=== PATIENT | male | born 1950 | race Caucasian/White ===

== ENCOUNTER 2020-07-27 17:34 | Inpatient (IN) | payer MEDICAID, SELFPAY ==
[2020-07-27 18:31] VITALS: BP 127/59; PULSE 105; RESP 18; TEMP 37.8; O2SAT 95; BMI 30.8
--- NOTE | 2020-07-27 18:38 | PC.NURSE ---
CALL DAUGHTER FOR INFO AND WITH UPDATES: BERNARDO [phone]
--- NOTE | 2020-07-27 20:48 | ED.ABDPAIN ---
HPI - Abdominal Pain General Chief Complaint: Abdominal Pain Stated Complaint: abdominal pain Time Seen by Provider: 07/27/20 20:41 Source: patient and family Mode of arrival: ambulatory Limitations: language barrier History of Present Illness HPI narrative: patient Togolese-speaking only with no significant past medical history had couple of loose bowels yesterday last night he had diffuse abdominal pain unable to eat much and again today had 1 loose bowel followed by severe pain in the right lower quadrant. Also noticed patient had 101 degree F temperature no nausea no vomiting patient did not eat much today because of pain never had similar episode in the past Related Data Allergies Allergy/AdvReac Type Severity Reaction Status Date / Time No Known Allergies Allergy Verified 07/27/20 18:30 Review of Systems Review of Systems REVIEW OF SYSTEMS: Pertinent positives and negatives are stated above in the history. GEN: no chills, fatigue HEENT: no nasal congestion, sore throat, ear pain NEURO: no headache, dizziness, focal weakness PULM: no cough, shortness of breath CV: no chest pain, palpitations, LE edema ABD: per HPI : no dysuria, urgency, frequency SKIN: no rash ROS otherwise negative x 10 Physical Exam Vital Signs: Vital Signs: Vital Signs Temp Pulse Resp BP Pulse Ox 07/27/20 23:48 99.1 F 80 16 124/59 L 98 07/27/20 18:31 100.0 F 105 H 18 127/59 L 95 Body Mass Index 30.8 Const: General: cooperative, well developed, acute distress moderate and well groomed Nutritional Appearance: average body habitus Orientation/consciousness: oriented to person and oriented to time HENMT: Head: Yes normal to inspection Ears: hearing grossly normal bilaterally Eyes: General: appearance normal, both eyes and all related structures Resp: Effort & Inspection: normal respiratory effort Auscultation: clear to auscultation bilaterally Cardio: Palpation: normal PMI Rate: regular rate Rhythm: regular rhythm Heart sounds: S1 normal heart sound present and S2 normal heart sound present GI: Inspection: Yes normal to inspection, No abdominal wall ecchymosis and No visible herniation Palpation (GI): Soft to palpation, Firmness to palpation present (GI), Tenderness to palpation present (GI) in the RLQ, at McBurney's point, obturator sign positive and psoas sign positive; Thomas's sign negative, with no rebound tenderness and Rovsing's sign negative, Guarding due to palpation present (GI), no hernias, no masses and no pulsatile masses Auscultation: normal bowel sounds : General: Yes no CVA tenderness Back/Spine/Pelvis: Back: no CVA tenderness Neuro: General: oriented to person, oriented to place and oriented to time Motor exam (neuro): 5/5 motor strength present throughout Course Course Course Narrative: [address] scan positive for early appendicitis without any complication will call surgeon Dr. Gould for admission and surgery MDM - Abdominal Pain Lab Data Result diagrams: 07/27/20 21:02 07/27/20 21:02 Labs: Lab Results 07/27/20 07/27/20 07/27/20 Range/Units 21:02 21:02 21:02 WBC 12.8 H (4.8-10.8) X10*3/uL RBC 5.07 (4.60-5.80) X10*6/uL Hgb 14.4 (14.0-18.0) g/dl Hct 44.7 (42-52) % MCV 88.2 (80-98) fL MCH 28.4 (27.0-33.0) pg MCHC 32.2 (31.0-36.0) g/dl RDW 14.1 (11.0-16.0) % Plt Count 216 (160-400) X10*3/uL MPV 10.1 (9.4-12.4) fL Immature Gran % (Auto) 0.3 (0.0-0.4) % Neut % (Auto) 76.0 H (45-73) % Lymph % (Auto) 15.6 L (20-40) % [place] % (Auto) 7.6 (2-11) % Eos % (Auto) 0.2 (0-4) % Baso % (Auto) 0.3 (0-2) % Lymph # (Auto) 2.0 (1.2-4.9) X10*3/uL [place] # (Auto) 1.0 (0.1-1.2) X10*3/uL Eos # (Auto) 0.0 (0.0-0.4) X10*3/uL Baso # (Auto) 0.0 (0.0-0.2) X10*3/uL Abs Immat Gran (auto) 0.04 H (0.00-0.03) X10*3/uL Absolute Neuts (auto) 9.7 H (2.0-8.3) X10*3/uL Absolute Nucleated RBC 0.000 (0.0-0.012) X10*3/uL Nucleated RBC % (auto) 0.0 (0.0-0.2) /100WBC PT 13.2 H (10.8-13.0) SEC INR 1.1 (0.9-1.1) Sodium 137 (135-145) mmol/L Potassium 3.7 (3.3-5.1) mmol/l Chloride 102 (96-108) mmol/L Carbon Dioxide 26 (22-29) mmol/L Anion Gap 13 (12-20) BUN 11 (9-16) mg/dL Creatinine 0.95 (0.5-1.4) mg/dL Estim Creat Clear Calc 83.2 Estimated GFR > 60 Random Glucose 132 H (60-115) mg/dL Lactic Acid (0.5-2.0) mmol/L Calcium 8.1 L (8.4-10.2) mg/dL 07/27/20 Range/Units 21:02 WBC (4.8-10.8) X10*3/uL RBC (4.60-5.80) X10*6/uL Hgb (14.0-18.0) g/dl Hct (42-52) % MCV (80-98) fL MCH (27.0-33.0) pg MCHC (31.0-36.0) g/dl RDW (11.0-16.0) % Plt Count (160-400) X10*3/uL MPV (9.4-12.4) fL Immature Gran % (Auto) (0.0-0.4) % Neut % (Auto) (45-73) % Lymph % (Auto) (20-40) % [place] % (Auto) (2-11) % Eos % (Auto) (0-4) % Baso % (Auto) (0-2) % Lymph # (Auto) (1.2-4.9) X10*3/uL [place] # (Auto) (0.1-1.2) X10*3/uL Eos # (Auto) (0.0-0.4) X10*3/uL Baso # (Auto) (0.0-0.2) X10*3/uL Abs Immat Gran (auto) (0.00-0.03) X10*3/uL Absolute Neuts (auto) (2.0-8.3) X10*3/uL Absolute Nucleated RBC (0.0-0.012) X10*3/uL Nucleated RBC % (auto) (0.0-0.2) /100WBC PT (10.8-13.0) SEC INR (0.9-1.1) Sodium (135-145) mmol/L Potassium (3.3-5.1) mmol/l Chloride (96-108) mmol/L Carbon Dioxide (22-29) mmol/L Anion Gap (12-20) BUN (9-16) mg/dL Creatinine (0.5-1.4) mg/dL Estim Creat Clear Calc Estimated GFR Random Glucose (60-115) mg/dL Lactic Acid 1.1 (0.5-2.0) mmol/L Calcium (8.4-10.2) mg/dL Discharge Plan Discharge Clinical Impression: Acute appendicitis Qualifiers: Acute appendicitis type: unspecified acute appendicitis type Qualified Code(s): K35.80 - Unspecified acute appendicitis Patient Disposition: Admitted As Inpatient [facility] Past Medical History Medical History High cholesterol Social History Social History Advance Directives: No Advance Directives Information Provided: Yes
--- NOTE | 2020-07-27 21:07 | CT_ITS ---
EXAMINATION: CT ABDOMEN AND PELVIS WITH CONTRAST CLINICAL INFORMATION: 70-year-old male with right lower quadrant pain. COMPARISON: None TECHNIQUE: Multidetector volumetric images were obtained from the superior aspect of the liver through the pubic symphysis following administration 85 mL of Omnipaque 350 intravenous contrast. Sagittal and coronal reformatted images were obtained on the technologist's workstation. Oral contrast: No This CT examination was performed using dose optimization techniques as appropriate, variously including the following: *Automated exposure control *Adjustment of mA and/or kV according to patient size (this includes techniques or standardized protocols for targeted exams where dose is matched to indication/reason for exam; i.e. extremities or head) *Use of iterative reconstruction technique DLP: 706 mGy-cm FINDINGS: Visualized lung bases demonstrate lingular and dependent atelectasis. Coronary artery calcifications are partially visualized. The liver demonstrates normal size, contour and attenuation. The gallbladder is unremarkable in appearance. The pancreas, spleen and adrenal glands are unremarkable. Symmetrically enhancing kidneys. No hydronephrosis. The stomach is decompressed. Normal caliber loops of small and large bowel. Mild colonic diverticulosis without CT evidence to suggest active diverticulitis. The appendix is mildly dilated measuring up to 9 mm in diameter. There is mesenteric stranding within the right lower abdomen adjacent to the appendix. No abscess or gross free intra-abdominal air appreciated. Normal caliber abdominal aorta which demonstrates only mild atherosclerotic disease. No retroperitoneal lymphadenopathy. Tiny fat-containing umbilical hernia. The bladder is well-distended and normal in appearance. The prostate gland is not enlarged. No gross free pelvic fluid. No inguinal lymphadenopathy. Moderate degenerative changes of the spine. Mild loss of the T12 vertebral body height, possibly a prominent Schmorl's node. CT/CT abdomen pelvis w con IMPRESSION: CT findings most consistent with acute appendicitis. Surgical consultation recommended. This Critical Result was discussed with Dr. Koenig at 10:55 PM on 07/27/2020 and it was ascertained that the content and urgency of the report was understood at the time of direct communication.
[2020-07-27 21:12] LABS: MANUAL DIFF FLAG NO
[2020-07-27 21:13] LABS: Basophils Percent Auto 0.3 % (0-2); Eosinophils Percent Auto 0.2 % (0-4); Hematocrit 44.7 % (42-52); Hemoglobin 14.4 g/dl (14.0-18.0); Imm Gran Abs Auto 0.04 X10*3/uL (0.00-0.03); Imm Gran Pct Auto 0.3 % (0.0-0.4); Lymphocytes Percent Auto 15.6 % (20-40); Mean Corpuscular HGB Conc 32.2 g/dl (31.0-36.0); Mean Corpuscular Hemoglobin 28.4 pg (27.0-33.0); Mean Corpuscular Volume 88.2 fL (80-98); Mean Platelet Volume 10.1 fL (9.4-12.4); Monocytes Percent Auto 7.6 % (2-11); Neutrophils Absolute Auto 9.7 X10*3/uL (2.0-8.3); Platelet Count 216 X10*3/uL (160-400); Red Blood Count 5.07 X10*6/uL (4.60-5.80); Red Cell Distribution Width 14.1 % (11.0-16.0); White Blood Count 12.8 X10*3/uL (4.8-10.8)
[2020-07-27] MEDS: Morphine Sulfate 4 MG/ML CARTRIDGE IVPUSH (21:15)
[2020-07-27] MEDS: ondansetron HCL 4 MG/2 ML VIAL IVPUSH (21:16)
[2020-07-27] MEDS: 0.9 % Sodium Chloride 1,000 ML 999 ML IVCONT (21:16)
[2020-07-27 21:19] LABS: INTERNATIONAL NORM RATIO 1.1 (0.9-1.1); Prothrombin Time 13.2 SEC (10.8-13.0)
[2020-07-27 21:47] LABS: Lactic Acid 1.1 mmol/L (0.5-2.0)
[2020-07-27 21:58] LABS: Anion Gap 13 (12-20); Blood Urea Nitrogen 11 mg/dL (9-16); Calcium 8.1 mg/dL (8.4-10.2); Carbon Dioxide 26 mmol/L (22-29); Chloride 102 mmol/L (96-108); Creatinine Clr Calc Pharmacy 83.2; Estimated Glomerular Filt Rate > 60; Glucose Random 132 mg/dL (60-115); Potassium 3.7 mmol/l (3.3-5.1); Sodium 137 mmol/L (135-145)
[2020-07-27] MEDS: iohexoL 350 MG/ML 100 ML INFUS..BTL IV (22:26)
[2020-07-27] MEDS: Piperacillin Sodium/Tazobactam 3.375 GM in 0.9 % Sodium Chloride 50 ML IV (23:45)
[2020-07-27 23:48] VITALS: BP 124/59; PULSE 80; RESP 16; TEMP 37.3; O2SAT 98
[2020-07-28] VITALS (13 sets, daily range): BP systolic 111–154; BP diastolic 20–69; PULSE 73–115; RESP 16–20; TEMP 36.8–38.2; O2SAT 91–98; BMI 30.8
[2020-07-28 00:59] LABS: SARS COV2 PCR INHOUSE NEGATIVE (Negative)
[2020-07-28] MEDS: Dextrose 5 % and Lactated Ring 1,000 ML 100 ML IVCONT ×2 (04:03→14:45)
[2020-07-28] MEDS: Piperacillin Sodium/Tazobactam 3.375 GM in 0.9 % Sodium Chloride 50 ML IV ×4 (04:24→22:17)
[2020-07-28] MEDS: Morphine Sulfate 4 MG/ML CARTRIDGE IVPUSH (05:35)
--- NOTE | 2020-07-28 05:42 | PC.NURSE ---
Addendum entered by Steffanie Amador RN 07/28/20 05:45: Charted to incorrect patient. Ignore the note below Original Note: Arrived from ED per stretcher and ambulated to bed. Alert and oriented x 4, coherent and conversant. Denied chest pain, headache or dizziness. No longer have nausea, vomiting and abdominal pain. Started IV fluids and urine specimen sent to lab. Slept intermittently during the night. Instructed to inform caregivers in case he had a bowel movement to collect specimen. Needs were attended. Will continue care plan.
--- NOTE | 2020-07-28 05:49 | PC.NURSE ---
Arrived from ED per stretcher. Alert and oriented x 4, primarily [place]ese speaking only. Able to call daughter Temitope over the phone to interpret and provide health care information. Denied chest pain and shortness of breath. He still have abdominal pain and tenderness on RLQ, Morphine 4 mg given PRN with relief. Kept NPO at this time. Will continue care plan.
--- NOTE | 2020-07-28 07:30 | P.HPGS_ITS ---
History of Present Illness History of Present Illness Chief complaint: abdominal pain/ACUTE APPENDICITIS Narrative: Mitzi Monsalve is a 70 year old male who presented to the emergency department last night with a 1 day history of fever and right lower quadrant abdominal pain. He had similar but less severe pain 2 weeks ago. The pain went away on its own but recurred 2 nights ago. Since that time, it has been waxing and waning in severity. Appetite has been poor. In the emergency department, CT scan of the abdomen and pelvis was obtained and was consistent with uncomplicated appendicitis. Review of Systems Constitutional: Constitutional: Reports fever(s) Cardiovascular: Cardiovascular: Denies chest pain, Denies irregular heart rhythm and Denies dyspnea Respiratory: Respiratory: Denies cough and Denies dyspnea Gastrointestinal: Gastrointestinal: Reports as per [facility] Past Medical History Medical History High cholesterol Social History Social History Household Members: Family Housing: House Do you presently have visiting nurse or other home services: No Alcohol intake: unknown Smoking Status: Former smoker Smoked in Last 30 Days: No Patient Interested in Nicotine Replacement: No (quit 3 years ago) Patient Given Instructions on How to Stop Smoking: No (quit 3 years ago) Second Hand Smoke Exposure: No Use of substances other than those prescribed or required for medical reasons: No Have you been hit, kicked, punched, or otherwise hurt by someone within the past year? If so, by whom?: No Do you feel safe in your current relationship?: Yes Is there a partner from a previous relationship who is making you feel unsafe now?: No Are you made to feel afraid or neglected: No Spiritual Healthcare Practices: No Uatsdin Healthcare Practices: Restorationism Cultural Healthcare Practices: No Advance Directives: No Advance Directives Information Provided: Yes Advance Directives on File: Yes Do you have thoughts of harming others: None Do you have a plan to hurt others: No Plan Recently lost weight without trying: No service: Yes Current occupational status: retired Meds Allergies Allergy/AdvReac Type Severity Reaction Status Date / Time No Known Allergies Allergy Verified 07/27/20 18:30 Home Medications Medication Instructions Recorded Confirmed Type atorvastatin 20 mg PO DAILY 07/28/20 07/28/20 History cyanocobalamin (vitamin B-12) 1,000 mcg PO DAILY 07/28/20 07/28/20 History Physical Exam Vital Signs: Vital Signs: Vital Signs Temp Pulse Resp BP Pulse Ox 07/28/20 06:53 18 07/28/20 04:00 98.9 F 95 18 140/66 H 96 07/28/20 03:03 98.9 F 95 18 140/66 H 96 07/27/20 23:48 99.1 F 80 16 124/59 L 98 07/27/20 18:31 100.0 F 105 H 18 127/59 L 95 Body Mass Index 30.8 Const: General: cooperative, healthy appearing and no acute distress HENMT: Head: Yes normal to inspection Neck: Neck: Yes full ROM and Yes trachea midline Resp: Other: Clear to ausc Cardio: Other: regular in rate and rhythm without audible murmurs GI: Other: round, soft, active bowel sounds, focal tenderness low in the rig ht lower quadrant without significant rebound. No palpable masses. Skin: Other: Normal color, warm and dry Results Results Labs: Short CBC 07/27/20 Range/Units 21:02 WBC 12.8 H (4.8-10.8) X10*3/uL Hgb 14.4 (14.0-18.0) g/dl Hct 44.7 (42-52) % Plt Count 216 (160-400) X10*3/uL BMP 07/27/20 21:02 Sodium 137 Potassium 3.7 Chloride 102 Carbon Dioxide 26 BUN 11 Creatinine 0.95 Calcium 8.1 L Assessment and Plan (1) Acute appendicitis: Qualifiers: Acute appendicitis type: unspecified acute appendicitis type Qualified Code(s): K35.80 - Unspecified acute appendicitis Status: Acute 70-year-old male with acute appendicitis. We reviewed treatment options including antibiotic therapy, which is not always successful, and laparoscopic or open appendectomy. He has elected to proceed with laparoscopic appendectomy. We have reviewed the technique of surgery and risks including but not limited to infection, bleeding, error in diagnosis, appendiceal stump leak, DVT and PE with the assistance of a telephone home health care coordinator. We also discussed the anticipated course of recovery. I answered his questions. I also spoke with his daughter by phone. Surgery is planned for later today.
--- NOTE | 2020-07-28 08:56 | MHC.CM.PN ---
CM met with Patient, who indicated that he only speaks Finnish.CM attempted to reach Patient via phone with Finnish [employer] but Patient's Daughter/HCP/Temitope answered. Patient lives in a house with his Daughter, Son-in-Law and 2 Grandchildren and he is functionally independent.Home is the goal for dc and CM has initiated and will follow for dc planning.Temitope indicated that she will get back to CM with the name of Patient's PCP.
--- NOTE | 2020-07-28 09:15 | MHC.CM.PN ---
Patient's PCP is Dr. Radha Barr @ [phone].
--- NOTE | 2020-07-28 11:34 | P.CONAN_ITS ---
[facility] Past Medical History Medical History High cholesterol Social History Social History Household Members: Family Housing: House Do you presently have visiting nurse or other home services: No Alcohol intake: unknown Smoking Status: Former smoker Smoked in Last 30 Days: No Patient Interested in Nicotine Replacement: No (quit 3 years ago) Patient Given Instructions on How to Stop Smoking: No (quit 3 years ago) Second Hand Smoke Exposure: No Use of substances other than those prescribed or required for medical reasons: No Have you been hit, kicked, punched, or otherwise hurt by someone within the past year? If so, by whom?: No Do you feel safe in your current relationship?: Yes Is there a partner from a previous relationship who is making you feel unsafe now?: No Are you made to feel afraid or neglected: No Spiritual Healthcare Practices: No Episcopalian Healthcare Practices: Anabaptism Cultural Healthcare Practices: No Advance Directives: No Advance Directives Information Provided: Yes Advance Directives on File: Yes Do you have thoughts of harming others: None Do you have a plan to hurt others: No Plan Recently lost weight without trying: No service: Yes Current occupational status: retired [employer] Allergies Allergy/AdvReac Type Severity Reaction Status Date / Time No Known Allergies Allergy Verified 07/27/20 18:30 Home Medications Medication Instructions Recorded Confirmed Type atorvastatin 20 mg PO DAILY 07/28/20 07/28/20 History cyanocobalamin (vitamin B-12) 1,000 mcg PO DAILY 07/28/20 07/28/20 History Exam Exam Date and Time: July 28, 2020 1134 Height,Weight and Vital Signs: Height 5 ft 10.87 in Weight 99.79 kg Last Vital Signs Temp 100.7 F H 07/28/20 10:29 Pulse 95 07/28/20 10:29 Resp 16 07/28/20 10:29 BP 154/20 H 07/28/20 10:29 Pulse Ox 94 07/28/20 10:29 Pertinent Lab Results Pertinent Lab Results: Laboratory Tests 07/27/20 07/27/20 07/27/20 21:02 21:02 21:02 WBC 12.8 H RBC 5.07 Hgb 14.4 Hct 44.7 MCV 88.2 MCH 28.4 MCHC 32.2 RDW 14.1 Plt Count 216 MPV 10.1 Immature Gran % (Auto) 0.3 Neut % (Auto) 76.0 H Lymph % (Auto) 15.6 L [place] % (Auto) 7.6 Eos % (Auto) 0.2 Baso % (Auto) 0.3 Lymph # (Auto) 2.0 [place] # (Auto) 1.0 Eos # (Auto) 0.0 Baso # (Auto) 0.0 Abs Immat Gran (auto) 0.04 H Absolute Neuts (auto) 9.7 H Absolute Nucleated RBC 0.000 Nucleated RBC % (auto) 0.0 PT 13.2 H INR 1.1 Sodium 137 Potassium 3.7 Chloride 102 Carbon Dioxide 26 Anion Gap 13 BUN 11 Creatinine 0.95 Estim Creat Clear Calc 83.2 Estimated GFR > 60 Random Glucose 132 H Lactic Acid Calcium 8.1 L Coronavirus (PCR) 07/27/20 07/28/20 21:02 00:01 WBC RBC Hgb Hct MCV MCH MCHC RDW Plt Count MPV Immature Gran % (Auto) Neut % (Auto) Lymph % (Auto) [place] % (Auto) Eos % (Auto) Baso % (Auto) Lymph # (Auto) [place] # (Auto) Eos # (Auto) Baso # (Auto) Abs Immat Gran (auto) Absolute Neuts (auto) Absolute Nucleated RBC Nucleated RBC % (auto) PT INR Sodium Potassium Chloride Carbon Dioxide Anion Gap BUN Creatinine Estim Creat Clear Calc Estimated GFR Random Glucose Lactic Acid 1.1 Calcium Coronavirus (PCR) NEGATIVE Airway Mallampati Class: II TM Dist: >3cm Heart: RRR Lungs: CTA B l
--- NOTE | 2020-07-28 11:36 | P.CONAN_ITS ---
[facility] Past Medical History Medical History High cholesterol Social History Social History Household Members: Family Housing: House Do you presently have visiting nurse or other home services: No Alcohol intake: unknown Smoking Status: Former smoker Smoked in Last 30 Days: No Patient Interested in Nicotine Replacement: No (quit 3 years ago) Patient Given Instructions on How to Stop Smoking: No (quit 3 years ago) Second Hand Smoke Exposure: No Use of substances other than those prescribed or required for medical reasons: No Have you been hit, kicked, punched, or otherwise hurt by someone within the past year? If so, by whom?: No Do you feel safe in your current relationship?: Yes Is there a partner from a previous relationship who is making you feel unsafe now?: No Are you made to feel afraid or neglected: No Spiritual Healthcare Practices: No Lutheran Healthcare Practices: Sikhism Cultural Healthcare Practices: No Advance Directives: No Advance Directives Information Provided: Yes Advance Directives on File: Yes Do you have thoughts of harming others: None Do you have a plan to hurt others: No Plan Recently lost weight without trying: No service: Yes Current occupational status: retired [employer] Allergies Allergy/AdvReac Type Severity Reaction Status Date / Time No Known Allergies Allergy Verified 07/27/20 18:30 Home Medications Medication Instructions Recorded Confirmed Type atorvastatin 20 mg PO DAILY 07/28/20 07/28/20 History cyanocobalamin (vitamin B-12) 1,000 mcg PO DAILY 07/28/20 07/28/20 History Exam Exam Date and Time: July 28, 2020 1136 Height,Weight and Vital Signs: Height 5 ft 10.87 in Weight 99.79 kg Last Vital Signs Temp 100.7 F H 07/28/20 10:29 Pulse 95 07/28/20 10:29 Resp 16 07/28/20 10:29 BP 154/20 H 07/28/20 10:29 Pulse Ox 94 07/28/20 10:29 Pertinent Lab Results Pertinent Lab Results: Laboratory Tests 07/27/20 07/27/20 07/27/20 21:02 21:02 21:02 WBC 12.8 H RBC 5.07 Hgb 14.4 Hct 44.7 MCV 88.2 MCH 28.4 MCHC 32.2 RDW 14.1 Plt Count 216 MPV 10.1 Immature Gran % (Auto) 0.3 Neut % (Auto) 76.0 H Lymph % (Auto) 15.6 L [place] % (Auto) 7.6 Eos % (Auto) 0.2 Baso % (Auto) 0.3 Lymph # (Auto) 2.0 [place] # (Auto) 1.0 Eos # (Auto) 0.0 Baso # (Auto) 0.0 Abs Immat Gran (auto) 0.04 H Absolute Neuts (auto) 9.7 H Absolute Nucleated RBC 0.000 Nucleated RBC % (auto) 0.0 PT 13.2 H INR 1.1 Sodium 137 Potassium 3.7 Chloride 102 Carbon Dioxide 26 Anion Gap 13 BUN 11 Creatinine 0.95 Estim Creat Clear Calc 83.2 Estimated GFR > 60 Random Glucose 132 H Lactic Acid Calcium 8.1 L Coronavirus (PCR) 07/27/20 07/28/20 21:02 00:01 WBC RBC Hgb Hct MCV MCH MCHC RDW Plt Count MPV Immature Gran % (Auto) Neut % (Auto) Lymph % (Auto) [place] % (Auto) Eos % (Auto) Baso % (Auto) Lymph # (Auto) [place] # (Auto) Eos # (Auto) Baso # (Auto) Abs Immat Gran (auto) Absolute Neuts (auto) Absolute Nucleated RBC Nucleated RBC % (auto) PT INR Sodium Potassium Chloride Carbon Dioxide Anion Gap BUN Creatinine Estim Creat Clear Calc Estimated GFR Random Glucose Lactic Acid 1.1 Calcium Coronavirus (PCR) NEGATIVE Assessment and Plan Assessment Anesthesia Assessment: Anesthesia Plan Discussed and Chart Reviewed Final Anesthetic Review NPO: Yes ASA Class: II and Emergency Final Preanesthetic Review: No Changes in Pt Med Stat and Consent Obtained/Reviewed Patient Risk: Intermediate Procedure Risk: Intermediate Anesthetic Plan Anesthetic Plan: GA Disposition: Standard PACU
--- NOTE | 2020-07-28 11:42 | MHC.SHP ---
Pre-Procedural Eval Section A The patient is an INPATIENT: Yes Section B Chief Complaint: abdominal pain/ACUTE APPENDICITIS Allergies: Allergies Allergy/AdvReac Type Severity Reaction Status Date / Time No Known Allergies Allergy Verified 07/27/20 18:30 Plan Diagnosis/Plan: Unchanged Patient has been examined and remains a candidate for the planned procedure
--- NOTE | 2020-07-28 12:34 | P.CONAN_ITS ---
[facility] Past Medical History Medical History High cholesterol Social History Social History Household Members: Family Housing: House Do you presently have visiting nurse or other home services: No Alcohol intake: unknown Smoking Status: Former smoker Smoked in Last 30 Days: No Patient Interested in Nicotine Replacement: No (quit 3 years ago) Patient Given Instructions on How to Stop Smoking: No (quit 3 years ago) Second Hand Smoke Exposure: No Use of substances other than those prescribed or required for medical reasons: No Currently Displaying Signs/Symptoms of Drug Intoxication Withdrawal: No Have you been hit, kicked, punched, or otherwise hurt by someone within the past year? If so, by whom?: No Do you feel safe in your current relationship?: Yes Is there a partner from a previous relationship who is making you feel unsafe now?: No Are you made to feel afraid or neglected: No Spiritual Healthcare Practices: No Congregational Healthcare Practices: Congregation Cultural Healthcare Practices: No Advance Directives: No Advance Directives Information Provided: Yes Advance Directives on File: Yes Do you have thoughts of harming others: None Do you have a plan to hurt others: No Plan Recently lost weight without trying: No service: Yes Current occupational status: retired [employer] Allergies Allergy/AdvReac Type Severity Reaction Status Date / Time No Known Allergies Allergy Verified 07/27/20 18:30 Home Medications Medication Instructions Recorded Confirmed Type atorvastatin 20 mg PO DAILY 07/28/20 07/28/20 History cyanocobalamin (vitamin B-12) 1,000 mcg PO DAILY 07/28/20 07/28/20 History Exam Exam Date and Time: July 28, 2020 1234 Height,Weight and Vital Signs: Height 5 ft 10.87 in Weight 99.79 kg Last Vital Signs Temp 100.7 F H 07/28/20 10:29 Pulse 95 07/28/20 10:29 Resp 16 07/28/20 10:29 BP 154/20 H 07/28/20 10:29 Pulse Ox 94 07/28/20 10:29 Pertinent Lab Results Pertinent Lab Results: Laboratory Tests 07/27/20 07/27/20 07/27/20 21:02 21:02 21:02 WBC 12.8 H RBC 5.07 Hgb 14.4 Hct 44.7 MCV 88.2 MCH 28.4 MCHC 32.2 RDW 14.1 Plt Count 216 MPV 10.1 Immature Gran % (Auto) 0.3 Neut % (Auto) 76.0 H Lymph % (Auto) 15.6 L Izard % (Auto) 7.6 Eos % (Auto) 0.2 Baso % (Auto) 0.3 Lymph # (Auto) 2.0 Izard # (Auto) 1.0 Eos # (Auto) 0.0 Baso # (Auto) 0.0 Abs Immat Gran (auto) 0.04 H Absolute Neuts (auto) 9.7 H Absolute Nucleated RBC 0.000 Nucleated RBC % (auto) 0.0 PT 13.2 H INR 1.1 Sodium 137 Potassium 3.7 Chloride 102 Carbon Dioxide 26 Anion Gap 13 BUN 11 Creatinine 0.95 Estim Creat Clear Calc 83.2 Estimated GFR > 60 Random Glucose 132 H Lactic Acid Calcium 8.1 L Coronavirus (PCR) 07/27/20 07/28/20 21:02 00:01 WBC RBC Hgb Hct MCV MCH MCHC RDW Plt Count MPV Immature Gran % (Auto) Neut % (Auto) Lymph % (Auto) Izard % (Auto) Eos % (Auto) Baso % (Auto) Lymph # (Auto) Izard # (Auto) Eos # (Auto) Baso # (Auto) Abs Immat Gran (auto) Absolute Neuts (auto) Absolute Nucleated RBC Nucleated RBC % (auto) PT INR Sodium Potassium Chloride Carbon Dioxide Anion Gap BUN Creatinine Estim Creat Clear Calc Estimated GFR Random Glucose Lactic Acid 1.1 Calcium Coronavirus (PCR) NEGATIVE
--- NOTE | 2020-07-28 13:13 | W.PM.OPN ---
Operative Note Operative Note Narrative: Preoperative Diagnosis: Acute Appendicitis Postoperative Diagnosis: Same Procedure: Laparoscopic Appendectomy Branch Billing Payroll Clerk: Kendra Parks PA-C Anesthesia: General endotrachial Estimated Blood Loss: 10 CC Specimen: Appendix Other findings: None Indications: This is a 70-year-old gentleman with a 2 day history of waxing and waning right lower quadrant abdominal pain. He presented to the emergency room last night. White blood count was mildly elevated and CT scan of the abdomen and pelvis was consistent with acute appendicitis. Procedure in detail: With the patient in the supine position after induction of adequate general anesthesia, time-out procedure was performed. 2 g of cefotetan were infused for antibiotic prophylaxis. Each trocar site was infiltrated with local anesthetic prior to making incisions. The abdomen was prepped with ChloraPrep and was draped sterilely. An infraumbilical incision was made and was carried down to the level of the fascia. The fascia was elevated in the midline with a Aniceto clamp and holding sutures of 0 Polysorb were placed on either side. The Aniceto was released and the special was split in the midline. The peritoneal cavity was entered. The Pham trocar was inserted and the abdomen was insufflated with carbon dioxide to a pressure of 15 mm of mercury. The 5 mm 30 degree laparoscopic was then inserted. The peritoneal cavity was visualized. No abnormalities were evident initially. 5 mm trocars were then placed, 1 laterally in the left lower quadrant and 1 in the midline a few cm above the pubic symphysis. Patient was rotated left side down and was placed in mild Trendelenburg position. The small bowel in the right lower quadrant was reflected medially. The medial-most loop of small bowel was adherent to underlying tissues and with gentle dissection, moderate inflammatory yet change with exudate was noted covering the yet area of the cecum. With careful dissection, the tip of the appendix and the mesoappendix were identified adherent to the right lower quadrant abdominal wall laterally. These were dissected free. The mesoappendix was then divided moving from distal to proximal using the 5 mm laparoscopic LigaSure. The appendix was moderately friable along the midportion. The appendix was retracted anteriorly toward the abdominal wall with a blunt grasper and the laparoscopic was removed and reinserted through the left lateral port. An Endo CLAIRE 30 purple load was inserted through the Pham trocar. While this was being done, the appendix tore along the midportion. The specimen pouch was therefore inserted through the Samuel trocar and the appendix was placed into the pouch. The pouch was closed and withdrawn along with the Samuel. The Samuel was then reinserted. A blunt grasper was again employed through the suprapubic port. The stump of the appendix was grasped with a blunt grasper and again was elevated cephalad. The Endo CLAIRE was inserted through the Samuel trocar and was angled and then placed across the junction of the appendix and the cecum. The Endo-CLAIER was then closed and the jaws were inspected to ensure that no extraneous tissues were included. The device was fired, opened and removed. A a 2nd specimen pouch was inserted through the Samuel trocar and the remaining portion of the appendix was placed into the pouch. The pouch was closed and withdrawn through the Pham trocar. The laparoscopic was then placed back through the Pham. The operative field was visualized. There was no evidence of bleeding. The right lower quadrant was copiously irrigated with saline solution. The staple line was intact with no evidence of bleeding. Patient was returned to the supine position. 5 mm trocars removed under direct vision. No bleeding was noted from trocar sites. Insufflation was discontinued and gas was allowed to escape from the peritoneal cavity. The Samuel trocar was removed. Fascia at the Samuel site was closed with a [id number] suture of 0 Polysorb. Skin incisions were closed with subcuticular sutures of 4-0 Polysorb. Steri-Strips and dry sterile dressings were applied. He tolerated the procedure well and was transported to the recovery room in stable condition. There were no immediate complications.
[2020-07-28] MEDS: Acetaminophen 325 MG TABLET 650 MG PO ×2 (14:48→22:18)
[2020-07-29] VITALS (8 sets, daily range): BP systolic 96–156; BP diastolic 50–76; PULSE 58–76; RESP 16–20; TEMP 35.7–36.9; O2SAT 91–94
[2020-07-29] MEDS: Dextrose 5 % and Lactated Ring 1,000 ML 100 ML IVCONT ×3 (00:56→23:04)
[2020-07-29] MEDS: Acetaminophen 325 MG TABLET 650 MG PO ×4 (03:19→21:55)
[2020-07-29] MEDS: Piperacillin Sodium/Tazobactam 3.375 GM in 0.9 % Sodium Chloride 50 ML IV ×4 (03:20→21:55)
[2020-07-29 07:30] LABS: MANUAL DIFF FLAG NO
[2020-07-29 07:46] LABS: Basophils Percent Auto 0.1 % (0-2); Hematocrit 42.2 % (42-52); Hemoglobin 13.4 g/dl (14.0-18.0); Imm Gran Abs Auto 0.06 X10*3/uL (0.00-0.03); Imm Gran Pct Auto 0.4 % (0.0-0.4); Lymphocytes Absolute Auto 1.1 X10*3/uL (1.2-4.9); Lymphocytes Percent Auto 7.1 % (20-40); Mean Corpuscular HGB Conc 31.8 g/dl (31.0-36.0); Mean Corpuscular Hemoglobin 28.9 pg (27.0-33.0); Mean Corpuscular Volume 91.1 fL (80-98); Mean Platelet Volume 10.8 fL (9.4-12.4); Monocytes Absolute Auto 0.7 X10*3/uL (0.1-1.2); Monocytes Percent Auto 4.7 % (2-11); Neutrophils Absolute Auto 12.9 X10*3/uL (2.0-8.3); Neutrophils Percent Auto 87.7 % (45-73); Platelet Count 199 X10*3/uL (160-400); Red Blood Count 4.63 X10*6/uL (4.60-5.80); Red Cell Distribution Width 13.8 % (11.0-16.0); White Blood Count 14.7 X10*3/uL (4.8-10.8)
[2020-07-29 08:09] LABS: Anion Gap 13 (12-20); Blood Urea Nitrogen 12 mg/dL (9-16); Calcium 7.8 mg/dL (8.4-10.2); Carbon Dioxide 27 mmol/L (22-29); Chloride 105 mmol/L (96-108); Creatinine Clr Calc Pharmacy 78.2; Estimated Glomerular Filt Rate > 60; Glucose Random 162 mg/dL (60-115); Sodium 141 mmol/L (135-145)
--- NOTE | 2020-07-29 09:13 | HO.POSTANES ---
Post Anesthesia Evaluation Post Anesthesia Evaluation Vital Signs: Vital Signs Temp Pulse Resp BP Pulse Ox 07/29/20 08:00 98.0 F 58 18 130/60 94 07/29/20 03:35 96.2 F L 65 20 98/54 L 92 07/29/20 01:43 97/52 L 93 07/29/20 00:00 96.8 F 68 16 96/50 L 91 L Anesthesia: General Endotracheal-GETA Mental Status: Awake Pain Control: Satisfactory Nausea/Vomiting: None Hydration: Adequate Anesthesia-Related Issues: No Anes. Related Issues
--- NOTE | 2020-07-29 09:23 | PM.PNGS ---
Subjective Subjective Interval history: He reports that he is not having any significant pain but says that his right lower quadrant tenderness is about the same as it was prior to surgery. He also reports some dysuria. No nausea. Tolerating p.o.. Physical Exam Vital Signs: Vital Signs: Vital Signs Temp Pulse Resp BP Pulse Ox 07/29/20 08:00 98.0 F 58 18 130/60 94 07/29/20 03:35 96.2 F L 65 20 98/54 L 92 07/29/20 01:43 97/52 L 93 07/29/20 00:00 96.8 F 68 16 96/50 L 91 L 07/28/20 19:29 98.5 F 76 16 153/69 H 93 07/28/20 15:51 98.4 F 73 16 126/56 L 94 07/28/20 14:43 98.2 F 97 18 118/58 L 93 07/28/20 13:52 105 H 20 134/64 91 L 07/28/20 13:38 108 H 17 121/47 L 98 07/28/20 13:33 101 H 17 131/49 L 96 07/28/20 13:28 105 H 17 132/45 L 96 07/28/20 13:23 98.4 F 115 H 16 141/57 H 97 07/28/20 10:29 100.7 F H 95 16 154/20 H 94 Body Mass Index 30.8 Const: General: healthy appearing, comfortable and alert Resp: Effort & Inspection: normal respiratory effort Auscultation: clear to auscultation bilaterally Cardio: Rate: regular rate Rhythm: regular rhythm GI: Other: Soft, mildly tender right lower quadrant, normal bowel sounds, dressings clean dry and intact Progress Note: A&P Assessment and plan (1) Acute appendicitis: Status: Acute Assessment and Plan: He is doing well day 1 following laparoscopic appendectomy. There was a moderate amount of exudate and inflammatory change in the right lower quadrant. I discussed this with him with the assistance of a telephonic interpreter deaf. Because of the amount of exudate present, I am recommending continued antibiotic therapy, intravenous for another day and then yet completion at home assuming he is feeling well and is ready for discharge tomorrow. I also explained to him that he had a urinary catheter inserted for the surgery. This is the likely cause of his dysuria. Anticipate that it will resolve over the next day or so as well. We discussed the anticipated course of postoperative recovery and plan for office follow-up. Fall Risk Details Current Medications: Current Medications Generic Name Dose Route Start Last Admin Trade Name Freq PRN Reason Stop Dose Admin Acetaminophen 650 mg 07/28/20 15:00 07/29/20 03:19 Acetaminophen 325 Mg Tablet PO 650 mg Q6H GLORIA Administration Atorvastatin Calcium 20 mg 07/29/20 09:00 Atorvastatin Calcium 20 Mg Tablet PO DAILY GLORIA Dextrose/Lactated Ringer's 1,000 mls @ 100 mls/hr 07/28/20 03:16 07/29/20 00:56 D5lr IVCONT 100 mls/hr .Q10H GLORIA Administration Piperacillin Sod/Tazobactam 50 mls @ 100 mls/hr 07/28/20 04:00 07/29/20 03:59 Sod 3.375 gm/ Sodium Chloride IV Infused Q6H GLORIA Infusion Oxycodone HCl 10 mg 07/28/20 14:21 Oxycodone Hcl Immed Release 5 Mg Tablet PO Q4H PRN Pain, Severe (Pain Scale 7-10) Oxycodone HCl 5 mg 07/28/20 14:21 Oxycodone Hcl Immed Release 5 Mg Tablet PO Q4H PRN Pain, Moderate (Pain Scale 4-6 Time Spent With Patient Time: Total time spent is greater than 50% in coordination of care (as documented) at patient's floor/unit and/or counseling patient: Time with patient: 15 - 24 minutes
[2020-07-29] MEDS: Atorvastatin Calcium 20 MG TABLET PO (09:56)
--- NOTE | 2020-07-30 | ECG_ITS ---
Test Reason : palpitations Blood Pressure : / mmHG Vent. Rate : 076 BPM Atrial Rate : 076 BPM P-R Int : 172 ms QRS Dur : 092 ms QT Int : 396 ms P-R-T Axes : 054 015 036 degrees QTc Int : 445 ms Normal sinus rhythm Normal ECG No previous ECGs available Referred By: Kendra Parks Electronically Signed By:ERNIE SANCHEZ MD
[2020-07-30] MEDS: Piperacillin Sodium/Tazobactam 3.375 GM in 0.9 % Sodium Chloride 50 ML IV ×2 (03:17→09:54)
[2020-07-30 04:00] VITALS: BP 130/69; PULSE 63; RESP 20; TEMP 36.8; O2SAT 93
[2020-07-30 08:00] VITALS: BP 155/71; PULSE 80; RESP 18; TEMP 36.7; O2SAT 92
--- NOTE | 2020-07-30 08:42 | PM.PNGS ---
Subjective Subjective Interval history: Obtained with assistance of telephone lead burner helper. Feels ok. Reports some heart tingling but denies actual chest pain or radiation of feeling, palpitations, SOB, dizziness. Denies abdominal pain, nausea or vomiting. Reports the tingling began last night and comes and goes. Denies previous episodes. Tolerating solid diet. Has been OOB and ambulating. Wants to go home. <MIRACLE Gates Last Filed: 07/30/20 08:51> Physical Exam Vital Signs: Vital Signs: Vital Signs Temp Pulse Resp BP Pulse Ox 07/30/20 08:00 98.0 F 80 18 155/71 H 92 07/30/20 04:00 98.3 F 63 20 130/69 93 07/29/20 23:41 98.2 F 63 20 126/60 93 07/29/20 19:56 97.7 F 69 20 156/67 H 94 07/29/20 16:00 98.4 F 76 16 154/76 H 94 07/29/20 12:00 97.6 F 58 18 117/58 L 94 Body Mass Index 30.8 <MIRACLE Gates Filed: 07/30/20 08:51> Const: General: comfortable, no acute distress and alert <MIRACLE Gates Filed: 07/30/20 08:51> Orientation/consciousness: patient oriented x3 <MIRACLE Gates Filed: 07/30/20 08:51> Eyes: Sclerae: sclerae normal <MIRACLE Gates Filed: 07/30/20 08:51> Resp: Effort & Inspection: normal respiratory effort <MIRACLE Gates Filed: 07/30/20 08:51> Auscultation: clear to auscultation bilaterally <Kendra Parks PA-C Filed: 07/30/20 08:51> Cardio: Rate: regular rate <MIRACLE Gates Filed: 07/30/20 08:51> Rhythm: regular rhythm <MIRACLE Gates Filed: 07/30/20 08:51> GI: Inspection: No distended and Yes incision (dressings clean/intact) <MIRACLE Gates Last Filed: 07/30/20 08:51> Palpation (GI): Soft to palpation, nontender, no guarding, not rigid and No Rebound tenderness present <MIRACLE Gates Last Filed: 07/30/20 08:51> Skin: Other: normal color, warm and dry <MIRACLE Gates Last Filed: 07/30/20 08:51> General skin exam: no rashes or lesions noted <MIRACLE Gates Last Filed: 07/30/20 08:51> Neuro: General: patient oriented x3 <MIRACLE Gates Last Filed: 07/30/20 08:51> Extrem: General: Yes no clubbing, cyanosis or edema <MIRACLE Gates Last Filed: 07/30/20 08:51> Progress Note: A&P Assessment and plan (1) S/P laparoscopic appendectomy: Problem details: S/P lap appy. tolerating diet abd soft says he had some sharp, pinching pain on right chest early - does not sound cardiac in etiology EKG normal abd soft ok to dc home talked to daughter Temitope by phone- explained dc instructions, wound care, ffup seen and examined - agree with MARTIN Parks <MIRACLE Gates Last Filed: 07/30/20 08:51> Status: Acute <MIRACLE Gates Last Filed: 07/30/20 08:51> Assessment and Plan: Doing well day 2 following laparoscopic appendectomy. VSS. RRR, abd exam benign with appropriate post op tenderness, dressings c/d/i. Tingling does not sound to be cardiac in nature but will obtain EKG this am. If normal stable for discharge to home with course PO Augmentin. F/u in office with Dr. Gould in 1 week. Patient comfortable with plan. <MIRACLE Gates Last Filed: 07/30/20 08:51> (2) Acute appendicitis: Status: Acute <Kendra Parks PA-C - Last Filed: 07/30/20 08:51> Fall Risk Details Current Medications: Current Medications Generic Name Dose Route Start Last Admin Trade Name Freq PRN Reason Stop Dose Admin Acetaminophen 650 mg 07/28/20 15:00 07/30/20 03:20 Acetaminophen 325 Mg Tablet PO Not Given Q6H GLORIA Atorvastatin Calcium 20 mg 07/29/20 09:00 07/29/20 09:56 Atorvastatin Calcium 20 Mg Tablet PO 20 mg DAILY GLORIA Administration Dextrose/Lactated Ringer's 1,000 mls @ 100 mls/hr 07/28/20 03:16 07/30/20 06:31 D5lr IVCONT Not Given .Q10H GLORIA Piperacillin Sod/Tazobactam 50 mls @ 100 mls/hr 07/28/20 04:00 07/30/20 05:19 Sod 3.375 gm/ Sodium Chloride IV Infused Q6H GLORIA Infusion Oxycodone HCl 10 mg 07/28/20 14:21 Oxycodone Hcl Immed Release 5 Mg Tablet PO Q4H PRN Pain, Severe (Pain Scale 7-10) Oxycodone HCl 5 mg 07/28/20 14:21 Oxycodone Hcl Immed Release 5 Mg Tablet PO Q4H PRN Pain, Moderate (Pain Scale 4-6 <MIRACLE Gates Last Filed: 07/30/20 08:51> Time Spent With Patient Time: Total time spent is greater than 50% in coordination of care (as documented) at patient's floor/unit and/or counseling patient: <MIRACLE Gates Last Filed: 07/30/20 08:51> Time with patient: 15 - 24 minutes <MIRACLE Gates Last Filed: 07/30/20 08:51>
[2020-07-30] MEDS: Atorvastatin Calcium 20 MG TABLET PO (09:55)
[2020-07-30] MEDS: Acetaminophen 325 MG TABLET 650 MG PO (09:55)
[2020-07-30] MEDS: Dextrose 5 % and Lactated Ring 1,000 ML 100 ML IVCONT (10:38)
--- NOTE | 2020-07-30 11:41 | MHC.CM.PN ---
Patient has been medically cleared for dc to home today, no services.
[2020-07-30 11:50] VITALS: BP 132/60; PULSE 77; RESP 20; TEMP 37.1; O2SAT 91
--- NOTE | 2020-08-03 13:24 | PM.DS ---
DS: Providers Provider Date of admission: 07/27/20 23:24 Primary care physician: Unknown Physician DS: Diagnosis Discharge Diagnosis (1) S/P laparoscopic appendectomy: Status: Acute Problem details: S/P lap appy. tolerating diet abd soft says he had some sharp, pinching pain on right chest early - does not sound cardiac in etiology EKG normal abd soft ok to dc home talked to daughter Temitope by phone- explained dc instructions, wound care, ffup seen and examined - agree with MARTIN Parks DS: Summary Hospital Course Hospital Course: This is a 70-year-old male who presented to the emergency department with a 1 day history of right lower quadrant abdominal pain. Workup in the emergency room revealed right lower quadrant tenderness and CT scan findings consistent with acute appendicitis. He was admitted and was kept NPO. He was started on IV antibiotic therapy with Zosyn. He wished to proceed with surgery, and underwent laparoscopic appendectomy on 07/28/2020. He tolerated the procedure well. Intraoperative findings included significant localized inflammatory change with exudate covering the cecum and terminal ileum. Because of this finding, IV antibiotics were continued following surgery. On postoperative day 2., he reported some chest discomfort that did not seem consistent with a cardiac process. An EKG was obtained and was normal. He was felt to be ready for discharge and was to complete his course of antibiotics p.o.. He was to follow up in the office in about 1 week. Time Spent with Patient Time attestation: Total time spent providing and/or coordinating discharge services: Physical Exam Vital Signs: Vital Signs: Body Mass Index 30.8 Const: General: cooperative and no acute distress Resp: Auscultation: clear to auscultation bilaterally Cardio: Rate: regular rate Rhythm: regular rhythm GI: Other: Soft, nondistended, trocar incisions clean and intact DS: Data Data Completed and Pending Completed studies during hospitalization [Text1]: Pending at discharge 07/28/20 13:00 Surgical [PTH] Routine Procedures Resection of Appendix, Percutaneous Endoscopic Approach (07/27/20) Discharge Plan Discharge Patient Disposition: Home, Self-Care Referrals: Criss Gould MD [Physician] - 1 Week Physician,Unknown [Primary Care Provider] - (Call for appointment.) Discharge Medications: New amoxicillin-pot clavulanate [Augmentin] 500-125 mg tablet 1 tab PO Q12H Qty: 10 RF: 0 oxycodone 5 mg tablet 5 mg PO Q4H PRN (Reason: pain) Qty: 20 RF: 0 Continued atorvastatin 20 mg Tablet 20 mg PO DAILY RF: 0 cyanocobalamin (vitamin B-12) 1,000 mcg Capsule 1,000 mcg PO DAILY RF: 0 Discharge Orders: Discharge Order (Routine); Ordered 07/30/20 Ordered By: Kendra Parks Diet: advance to your usual diet Activity on Discharge: No heavy lifting Discharge Date/Time: 07/30/20 16:00 Activity Restrictions/Additional Instructions: If the incision area is tender, you may apply an ice pack for short intervals (No more than 20 minutes on, followed by at least 20 minutes off). Do not apply heat. Do not use creams, lotions, or topical antibiotics unless instructed to do so by your surgeon. These can cause infection or allergic reaction. Remove bandaids 07/30/20. Ok to shower. You have steri strips (small white cloth strips) covering your incision- these will fall off ~1 week. Call Your Doctor If: -Your temperature exceeds 101.5? F -You experience excessive pain or swelling -You have an unexpected reaction to medication -You have excessive bleeding -You experience continued vomiting/nausea -Your incision begins to separate -Your incision shows signs of infection such as increased redness, swelling, excessive pain, drainage (light blood or clear fluid is normal) or heat Visit Report Forms: Patient Portal Discharge page Care Plan Goals: Return to baseline health and activity. Health Concerns: Acute appendicitis, s/p laparoscopic appendectomy Plan of Treatment: Discharge to home
== END 2020-07-30 16:00 | disposition home or self-care (01) | DRG 234 ==
LOC: HO.ED 23:54 → HO.IMC 07-28 01:24
PROVIDERS: Admitting Provider Surgery; Emergency Provider Internal Medicine; Visit Provider Surgery
PROC: 0DTJ4ZZ Resection of Appendix, Percutaneous Endoscopic Approach (ICD-10-PCS; CPT 44970; principal; 2020-07-28 11:00)
DX: K35.80 Unspecified acute appendicitis (principal); Z20.828 Contact with and (suspected) exposure to other viral communicable diseases; Z79.899 Other long term (current) drug therapy
CPT/HCPCS: 36415; 74177; 80048; 83605; 85025; 85610; 87635; 88304; 93005; 96361; 96365; 96375; 99024; 99285; J1100; J2250; J2270; J2405; J2543; J3010; Q9967

== ENCOUNTER → 2020-08-11 14:56 | Outpatient (BNVA) | payer MEDICAID, SELFPAY | PROVIDERS: PCP Internal Medicine; Visit Provider Surgery | DX: Z09 Encounter for follow-up examination after completed treatment for conditions other than malignant neoplasm (principal); Z87.19 Personal history of other diseases of the digestive system; Z90.49 Acquired absence of other specified parts of digestive tract | CPT/HCPCS: 99212 ==